=== PATIENT | male | born 1960 | race Caucasian/White ===

== ENCOUNTER → 2023-02-07 15:15 | Outpatient (CLI) | payer SELFPAY ==
[2023-02-07 17:12] LABS: Hematocrit 45.4 % (41-53); Hemoglobin 15.7 g/dL (13.5-17.5); Mean Corpuscular HGB Conc 34.5 % (30-36); Mean Corpuscular Hemoglobin 31.3 PG (26-34); Mean Corpuscular Volume 90.9 fL (80-100); Platelet Count 286 X10^3/uL (150-400); Red Cell Distribution Width 13.1 % (11.6-14.8); White Blood Cell Count 9.6 X10^3/uL (4.5-11.0)
[2023-02-07 17:43] LABS: Alanine Aminotransferase 35 IU/L (<50); Albumin 4.8 g/dL (3.5-5.0); Albumin Globulin Ratio 1.4 (1.0-2.8); Alkaline Phosphatase 62 U/L (38-126); Aspartate Aminotransferase 29 IU/L (17-59); BUN Creatinine Ratio 17.9 (6-22); Bilirubin Total 0.6 mg/dL (0.2-1.3); Blood Urea Nitrogen 12 mg/dL (9-20); Calcium 9.7 mg/dL (8.4-10.2); Carbon Dioxide 32 mmol/L (22-32); Chloride 102 mmol/L (98-107); Cholesterol 280 mg/dL (140-199); Estimated Glomerular Filt Rate > 60 mL/min (>60); Globulin 3.4 g/dL (1.7-4.1); Glucose 128 mg/dL (80-110); HDL Cholesterol 35 mg/dL (40-60); HEMOLYSIS < 15 (0-50); Potassium 3.9 mmol/L (3.4-5.1); Sodium 141 mmol/L (137-145); Total Protein 8.2 g/dL (6.3-8.2)
[2023-02-07 18:01] LABS: Creatinine Urine Random 39.2 mg/dL
[2023-02-07 18:06] LABS: Triglycerides 880 mg/dL (35-150)
[2023-02-07 18:13] LABS: TSH w/ Reflex to FT4 2.38 uIU/mL (0.47-4.68)
[2023-02-07 18:19] LABS: Microalbumi Creatinin Ratio Ur 846.9 ug/mg CR (<30); Microalbumin Urine Random 33.2 mg/dL (0-1.6)
[2023-02-09 09:05] LABS: Labcorp Hemoglobin (Hb) A1c 8.2 % (4.8-5.6)
== END ==
PROVIDERS: PCP Registered Nurse Diabetes Educator; Referring Provider Registered Nurse Diabetes Educator; Visit Provider Registered Nurse Diabetes Educator
DX: E11.9 Type 2 diabetes mellitus without complications (principal); I10 Essential (primary) hypertension; E78.5 Hyperlipidemia, unspecified
CPT/HCPCS: 36415; 80053; 80061; 82043; 82570; 83036; 84443; 85027

== ENCOUNTER → 2023-12-21 11:00 | Outpatient (CLI) | payer MEDICARE, SELFPAY ==
[2023-12-21 11:40] LABS: Add Manual Diff / Slide Review NO; Basophils Absolute Auto 100 /uL (0-100); Basophils Percent Auto 0.7 % (0-2); Eosinophils Absolute Auto 100 /uL (0-450); Eosinophils Percent Auto 0.8 % (2-4); Hematocrit 42.1 % (41-53); Hemoglobin 14.5 g/dL (13.5-17.5); Lymphocytes Absolute Auto 3000 /uL (1100-4500); Lymphocytes Percent Auto 33.2 % (25-40); Mean Corpuscular HGB Conc 34.4 % (30-36); Mean Corpuscular Hemoglobin 31.5 PG (26-34); Mean Corpuscular Volume 91.6 fL (80-100); Monocytes Absolute Auto 700 /uL (0-900); Monocytes Percent Auto 7.2 % (3-14); Neutrophils Absolute Auto 5200 /uL (1500-7000); Neutrophils Percent Auto 58.1 % (50-75); Platelet Count 231 X10^3/uL (150-400); Red Cell Distribution Width 12.6 % (11.6-14.8)
[2023-12-21 11:50] LABS: Alanine Aminotransferase 30 IU/L (<50); Albumin 4.4 g/dL (3.5-5.0); Albumin Globulin Ratio 1.4 (1.0-2.8); Alkaline Phosphatase 61 U/L (38-126); Aspartate Aminotransferase 27 IU/L (17-59); BUN Creatinine Ratio 23.4 (6-22); Bilirubin Total 0.7 mg/dL (0.2-1.3); Blood Urea Nitrogen 15 mg/dL (9-20); Calcium 9.6 mg/dL (8.4-10.2); Carbon Dioxide 29 mmol/L (22-32); Chloride 102 mmol/L (98-107); Cholesterol 167 mg/dL (140-199); Estimated Glomerular Filt Rate > 60 mL/min (>60); Globulin 3.1 g/dL (1.7-4.1); Glucose 300 mg/dL (80-110); HDL Cholesterol 43 mg/dL (40-60); HEMOLYSIS < 15 (0-50); Potassium 4.6 mmol/L (3.4-5.1); Sodium 138 mmol/L (137-145); Total Protein 7.5 g/dL (6.3-8.2); Triglycerides 439 mg/dL (35-150)
[2023-12-21 11:57] LABS: Hemoglobin A1C% w Est Avg Glu 10.6 % (4.0-6.0)
[2023-12-21 12:02] LABS: Creatinine Urine Random 133.1 mg/dL
[2023-12-21 12:09] LABS: Microalbumi Creatinin Ratio Ur 54.8 ug/mg CR (<30); Microalbumin Urine Random 7.3 mg/dL (0-1.6)
[2023-12-21 12:20] LABS: TSH w/ Reflex to FT4 0.97 uIU/mL (0.47-4.68)
== END ==
PROVIDERS: PCP Registered Nurse Diabetes Educator; Referring Provider Nurse Practitioner Family; Visit Provider Nurse Practitioner Family
DX: I10 Essential (primary) hypertension (principal); E11.9 Type 2 diabetes mellitus without complications
CPT/HCPCS: 36415; 80053; 80061; 82043; 82570; 83036; 84443; 85025

== ENCOUNTER → 2024-01-09 09:56 | Outpatient (CLI) | payer MEDICARE, SELFPAY ==
--- NOTE | 2024-01-10 13:37 | DIAB.MNT ---
Initial Diabetes Medical Nutrition Therapy Assessment Name: Ugo Blanco Date: 01/09/24 Time: 1030a-12p Dx: Type II Diabetes Brian presents for initial Dm visit. Denies previous DM ed. PMH of DM for 15+ years per report. FH of DM with mother and sister. Has had to ration meds in the past. Due to this he is only taking half of the Metformin dose. Denies issues with getting DM meds as of recent, but he is fearful of running out. Taking Farxiga and glipizide as rx'd. Not taking all rx'd meds, and needing a list of bp meds. H/o very high BP. Use to use Trulicity before moving here from [place], but decided to d/c this after the move. Lives on a sail[place]. Son, DIL, and grandchildren live here. still lives in [place]. Reports pain with walking, which resolves after rest. Has some risk factors for PAD, ie hyperglycemia and h/o tobacco use x 40 years. No longer using tobacco since stroke 3 years ago. Cares for his feet daily. Does not go barefoot. Since he lives on a boat, he finds it challenging to home cook meals. Has a burner, but limited capability to wash dishes. Most meals are microwaved. Often high Na meals, which likely impact his BP. Diet Recall: 530-6a: 2c coffee creamer hazelnut 1p: microwavable breakfast bowl with sausage, egg, potato (900mg Na and 14g CHO) OR Grocery store prepared breakfast burrito with eggs, cheese, onion, and sausage 630-7p: burrito OR grocery store prepared meals, ie 1/2c mac n cheese with protein and half cup corn Sn: nothing or chips or sweetened cereal, ie chocolate rice, frosted flakes, shredded wheat Gini: 1.5L sf peach tea, 2c coffee, no plain water Anthropometrics: Ht: 6' Wt: 201# (12/2023) Physical Activity: walks dog 4-5x per day for 5-10 min. ONce per week walks to grocery store and back, 0.5 mi. Main barrier is leg pain. Self-Monitoring Blood Glucose: None. Has rx but no supplies at home. Has checked in the past. No BP cuff at home. ARY MENSAH called his pharmacy and confirmed that they have BG supplies ordered. Pharmacy will coordinate with pt and PCP office to fill this. Diabetes Medications: 1000mg Metformin BID (taking 1000mg AM only) 10mg Farxiga 2.5mg glipizide ER Pertinent Labs: HgA1c: 8.2% 02/2023 10.6% 12/2023 Past Medical History: (Last Reviewed 06/10/23 @ 10:23 by OVI Alan) Dyslipidemia Essential hypertension (~2009) History of stroke History of TIA (transient ischemic attack) (~2019) Marijuana user Partial blindness (~2019) Type 2 diabetes mellitus without complication (~2000) Nutrition Rx: Carbohydrates: Meal:45g Snack: 15-30g ; Sodium: 2000mg daily Nutrition Diagnosis: - Excessive Na intake r/t premade foods and limited ability to prepare foods aeb pt report and elevated BP - Self monitoring deficit r/t no SMBG supplies aeb pt report of not checking BG - Food and nutrition related knowledge deficit r/t no previous MNT or DM ed aeb pt report Intervention: This participant was very receptive. Provided appropriate educational handouts. Discussed the following topics: Completed intake assessment. Discussed barriers to care. Pathophysiology of T2DM HgA1c, its correlation to blood glucose numbers, and rationale for goal Importance of self-monitoring, how often, and when to check. Plate Method, impact of macronutrients on blood sugar, meal timing, carbohydrate counting, pairing macronutrients and spreading out carbohydrates for better blood glucose management Recommended servings for carbohydrates at meals and snacks Heart health nutrition: Na Medication Review: reviewed rx'd meds, encouraged him to compare this to home regimen Brainstormed appropriate meal plan based on food preferences Role of physical activity Created SMART goals for patient self-care and success. 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
== END ==
LOC: DIET 09:57
PROVIDERS: PCP Registered Nurse Diabetes Educator; Referring Provider Nurse Practitioner Family; Visit Provider Nurse Practitioner Family
DX: E11.9 Type 2 diabetes mellitus without complications (principal); Z79.84 Long term (current) use of oral hypoglycemic drugs; Z71.3 Dietary counseling and surveillance
CPT/HCPCS: 97802

== ENCOUNTER → 2024-01-29 09:38 | Outpatient (CLI) | payer MEDICARE, SELFPAY ==
--- NOTE | 2024-02-08 17:05 | DIAB.MNTFU ---
Follow-up Diabetes Medical Nutrition Therapy Assessment Name: Ugo Blanco Date: 01/29/24 Time: 07-5144a Dx: Type II Diabetes Brian presents for dm follow-up. Reports not picking up SGLT2i or insulin due to cost. Today we called his pharmacy and determined insulin cost is for 75 days, not one month. Seems more manageable for him. Increased glipizide to 5mg. Plans to get BP cuff for home checks at pay day 02/08. Limited veggie intake, but likes quite a few, ie beets, carrots, celery, spinach. Has separate 2 burner that is portable, however worries about hot plate and fire hazard on boat. Cooking mostly with microwave. Lots of processed foods as a result, high Na intake. Anthropometrics: Ht: 6' Wt: 196# at PCP Physical Activity: : walks dog 4-5x per day for 5-10 min. ONce per week walks to grocery store and back, 0.5 mi. Main barrier is leg pain. Self-Monitoring Blood Glucose: Started checking FB-400mg/dl. Diabetes Medications: 1000mg Metformin BID (taking 1000mg AM only) 10mg Farxiga (not taking) 5mg glipizide ER 5u Glargine (not taking) Pertinent Labs: HgA1c: 8.2% 02/2023 10.6% 12/2023 Past Medical History: (Last Reviewed 06/10/23 @ 10:23 by OVI Alan) Dyslipidemia Essential hypertension (~2009) History of stroke History of TIA (transient ischemic attack) (~2019) Marijuana user Partial blindness (~2019) Type 2 diabetes mellitus without complication (~2000) Nutrition Rx: Carbohydrates: Meal:45g Snack: 15-30g ; Sodium: 2000mg daily Nutrition Diagnosis: - Excessive Na intake r/t premade foods and limited ability to prepare foods aeb pt report and elevated BP- in progress - Self monitoring deficit r/t no SMBG supplies aeb pt report of not checking BG- improved - Food and nutrition related knowledge deficit r/t no previous MNT or DM ed aeb pt report- in progress Intervention: This participant was very receptive. Provided appropriate educational handouts. Discussed the following topics: Blood sugar review and trends. Medication management: insulin action, risk/tx lows, cost Heart health nutrition: sodium Meal planning Strategies for increasing veggies Created SMART goals for patient self-care and success. Goals: Add vegetables to dinner- in progress switch to turkey sausage- in progress Check premade meals for nutrition label- met medical supervisor meter and supplies- met Check medications at home compared to list- met Switch to cheerios- met Buy BP cuff- new medical supervisor veggies- new Make your own burrito- new medical supervisor insulin on pay day- new Follow-up: MARCELLE MENSAH follow-up in 3-4 weeks Caroline Jorgensen RDN, MAKENNA Certified Diabetes Care and Refinery Operator [employer] [facility] P: [phone] Thank you for this referral
== END ==
PROVIDERS: PCP Registered Nurse Diabetes Educator; Referring Provider Registered Nurse Diabetes Educator
DX: E11.9 Type 2 diabetes mellitus without complications (principal); Z79.84 Long term (current) use of oral hypoglycemic drugs; T38.3X6A Underdosing of insulin and oral hypoglycemic [antidiabetic] drugs, initial encounter; Z91.120 Patient's intentional underdosing of medication regimen due to financial hardship; Z71.3 Dietary counseling and surveillance
CPT/HCPCS: 97803

== ENCOUNTER → 2024-03-01 09:29 | Outpatient (CLI) | payer MEDICARE, SELFPAY ==
--- NOTE | 2024-03-01 10:00 | DIAB.FU ---
Follow-up Diabetes Education Assessment Name: Ugo Blanco Date: 03/01/24 Time: 97-1028o Dx: Type II Diabetes Brian presents for dm follow-up. BP much improved. Up to 20u of Lantus and BG down from 400-500, around 300-360mg/dl now. Based on wt may need closer to 45u HS for BG to be in range. Poor sleep most nights due to dog waking him to urinate. Reports he could not pick up operator Farxiga due to cost of $200, though states pharmacy at first quoted for $50. Called pharmacy and found out he has a $150 deductible + $47/month cost. This is unaffordable for him per report. Currently only taking half dose Metformin. Was rationing Metformin due to cost and reading on social media that Metformin is bad for you. Plans to increase to rx and titrate insulin until BG in goal. Has Rx for CGM to [facility]. Given insurance, may need to use Dm supply company. Today we downloaded [employer]loom apps and will place starter kit next week or personal CGM if he receives it from pharmacy. Anthropometrics: Ht: 6' Wt: 198# at PCP Physical Activity: : walks dog 4-5x per day or more for 5-10 min. Once per week walks to grocery store and back, 0.5 mi. Main barrier is leg pain. Self-Monitoring Blood Glucose: FBG running in the 300s mg/dl. Diabetes Medications: 1000mg Metformin BID (taking 1000mg AM only) 10mg Farxiga (not taking due to cost) 5mg glipizide ER 20u Glargine Pertinent Labs: HgA1c: 8.2% 02/2023 10.6% 12/2023 Past Medical History: (Last Reviewed 06/10/23 @ 10:23 by OVI Alan) Dyslipidemia Essential hypertension (~2009) History of stroke History of TIA (transient ischemic attack) (~2019) Marijuana user Partial blindness (~2019) Type 2 diabetes mellitus without complication (~2000) Intervention: This participant was very receptive. Provided appropriate educational handouts. Discussed the following topics: Blood sugar review and trends. Medication management: insulin titration schedule and Metformin safety and recs Troubleshooting Farxiga cost with him and pharmacy Downloaded CGM apps for next visit Low s/s and tx Symptoms of lows with in range numbers after hyperglycemia hx Created SMART goals for patient self-care and success. Goals: Buy BP cuff- met supervisor patching veggies- not discussed Make your own burrito- not discussed supervisor patching insulin on pay day- met Increase Metformin to rx- new Titrate insulin q other day as discussed- new supervisor patching glucose tabs- new Follow-up: MARCELLE MENSAH follow-up in 1 week Caroline Jorgensen RDN, MAKENNA Certified Diabetes Care and Diesel Powerplant Supervisor P: [phone] Thank you for this referral
== END ==
PROVIDERS: PCP Registered Nurse Diabetes Educator; Referring Provider Registered Nurse Diabetes Educator
DX: E11.9 Type 2 diabetes mellitus without complications (principal); Z79.4 Long term (current) use of insulin; Z71.3 Dietary counseling and surveillance; Z79.84 Long term (current) use of oral hypoglycemic drugs
CPT/HCPCS: G0108

== ENCOUNTER → 2024-03-08 09:51 | Outpatient (CLI) | payer MEDICARE, SELFPAY ==
--- NOTE | 2024-03-21 11:39 | DIAB.FU ---
Follow-up Diabetes Education Assessment Name: Ugo Blanco Date: 03/08/24 Time: [id number] Dx: Type II Diabetes Brian presents for Dm visit. Reports apprehension today about CGM trial. Would certainly benefit given we are adjusting insulin, he historically has had hyperglycemia, though may be at risk for lows with titration of insulin. Plans to titrate up to 30u of glargine since he continues to have BG in the 290-400mg/dl range. Has questions about taking Metformin with insulin at the same time before bed. Self-Monitoring Blood Glucose: Checking FBG and though they are improving they are still quite elevated with recent readings 318, 343, 290, 329, 354, 300 mg/dl. Less readings in the 400 range this week. Also had his first reading under 300mg/dl. Diabetes Medications: 1000mg Metformin BID (taking 1000mg AM only) 10mg Farxiga (not taking due to cost) 5mg glipizide ER 20u Glargine Pertinent Labs: HgA1c: 8.2% 02/2023 10.6% 12/2023 Past Medical History: (Last Reviewed 06/10/23 @ 10:23 by OVI Alan) Dyslipidemia Essential hypertension (~2009) History of stroke History of TIA (transient ischemic attack) (~2019) Marijuana user Partial blindness (~2019) Type 2 diabetes mellitus without complication (~2000) Intervention: This participant was very receptive. Provided appropriate educational handouts. Discussed the following topics: Recent blood sugar results and trends Medication management: insulin titration, taking metformin with insulin safety Reviewed CGM use and equipment Discussed when to check blood sugars using finger stick Reviewed high and low blood sugar signs/symptoms and treatment options Provided education for self-administration of CGM placement Educated patient on alarm settings Discussed when to replace equipment and disposal Created SMART goals for patient self-care and success. 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 Encouraged Ugo to call after 10 day trial of CGM. Caroline Jorgensen, MARCELLE, MAKENNA Certified Diabetes Care and Bed Laster P: [phone] Thank you for this referral
== END ==
LOC: DIET 09:52
PROVIDERS: PCP Nurse Practitioner Family; Referring Provider Nurse Practitioner Family
DX: E11.9 Type 2 diabetes mellitus without complications (principal); I10 Essential (primary) hypertension; Z71.3 Dietary counseling and surveillance
CPT/HCPCS: G0108

== ENCOUNTER → 2024-04-10 10:35 | Outpatient (CLI) | payer MEDICARE, SELFPAY ==
--- NOTE | 2024-04-10 10:59 | DIAB.MNTFU ---
Follow-up Diabetes Medical Nutrition Therapy Assessment Name: Ugo Blanco Date: 04/10/24 Time: 11aa Dx: Type II Diabetes Brian presents for Dm follow-up. Tried CGM sample, but the sensor seemed to be faulty. Up to 70u HS insulin, which is on the high side. May actually benefit from meal time insulin, however some concerns from this RD on how realistic consistent meal time insulin injections would be for him. Now taking Metformin as rx'd. Plans to see PCP today. Most meals are pre packaged from grocery store. Limited ability to cook in boat kitchen. Does not eat salads due to GI upset/diarrhea, which is especially an issue on the boat (does not use his boat restroom). Choosing brown rice. Avoiding potatoes and corn. Drinking sugar beverages due to misunderstanding about sugar substitutes. Anthropometrics: Ht: 6' Wt: 196# at PCP Physical Activity: : walks dog 4-5x per day for 5-10 min. ONce per week walks to grocery store and back, 0.5 mi. Main barrier is leg pain. Self-Monitoring Blood Glucose: CGM sensor malfunctioned. Did get some data indicating elevations in the 200-300 after some meals. Continues to check FBG. Some in goal, but others still quite elevated. Will place another sample and ask for food journal. Previous readings in March indicate a few numbers 120-150mg/dl. Unclear why the variation. Date Pre Post Pre Post Pre Post HS 04/04 121 04/05 326 04/06 200 04/07 175 7/ 200 7/2 252 73 175 Diabetes Medications: 1000mg Metformin BID 5mg glipizide ER 70u Glargine Pertinent Labs: HgA1c: 8.2% 02/2023 10.6% 12/2023 Past Medical History: (Last Reviewed 06/10/23 @ 10:23 by OVI Alan) Dyslipidemia Essential hypertension (~2009) History of stroke History of TIA (transient ischemic attack) (~2019) Marijuana user Partial blindness (~2019) Type 2 diabetes mellitus without complication (~2000) Nutrition Rx: Carbohydrates: Meal:45g Snack: 15-30g ; Sodium: 2000mg daily Nutrition Diagnosis: Predicted excessive CHO intake r/t nutrition knowledge deficit aeb reported soda intake and processed foods Intervention: This participant was very receptive. Provided appropriate educational handouts. Discussed the following topics: Blood sugar review and trends. Impact of food intake on results. Impact of macronutrients on blood sugar Impact of sugar beverages vs SF options CGM review and guided self placement Medication management Created SMART goals for patient self-care and success. Goals: Trial CGM- in progress Take Metformin BID - met Avoid sugar beverages- new Buy low CHO tortillas- new Keep food journal- new Retry CGM x 10 days - new Follow-up: MARCELLE MENSAH follow-up in 2-3 weeks Caroline Jorgensen RDN, MAKENNA Certified Diabetes Care and Client Experience Consultant P: [phone] Thank you for this referral
== END ==
PROVIDERS: PCP Nurse Practitioner Family; Referring Provider Nurse Practitioner Family
DX: E11.9 Type 2 diabetes mellitus without complications (principal); Z79.84 Long term (current) use of oral hypoglycemic drugs; Z79.4 Long term (current) use of insulin; Z71.3 Dietary counseling and surveillance
CPT/HCPCS: 97803

== ENCOUNTER → 2024-04-10 13:11 | Outpatient (CLI) | payer MEDICARE, SELFPAY ==
[2024-04-10 14:29] LABS: Cholesterol 176 mg/dL (140-199); HDL Cholesterol 39 mg/dL (40-60); LDL Cholesterol Calculated 73 mg/dL (<100); Triglycerides 320 mg/dL (35-150)
[2024-04-10 15:55] LABS: Hemoglobin A1C% w Est Avg Glu 10.3 % (4.0-6.0)
== END ==
PROVIDERS: PCP Nurse Practitioner Family; Referring Provider Nurse Practitioner Family; Visit Provider Nurse Practitioner Family
DX: E11.9 Type 2 diabetes mellitus without complications (principal); E78.5 Hyperlipidemia, unspecified
CPT/HCPCS: 36415; 80061; 83036

== ENCOUNTER → 2024-04-26 08:37 | Outpatient (CLI) | payer MEDICARE, SELFPAY ==
--- NOTE | 2024-05-01 15:55 | DIAB.MNTFU ---
Follow-up Diabetes Medical Nutrition Therapy Assessment Name: Ugo Blanco Date: 04/26/24 Time: 2297-1517 Dx: Type II Diabetes Brian presents for Dm follow-up. Tried CGM sample, didn't love it but was fine with wearing it. Feels it did not impact any lifestyle changes for him. Continues on 70u HS insulin, which is on the high side. May actually benefit from meal time insulin, however some concerns from this RD on how realistic consistent meal time insulin injections would be for him. Most meals are pre packaged from grocery store. Limited ability to cook in boat kitchen. Does not eat salads due to GI upset/diarrhea, which is especially an issue on the boat (does not use his boat restroom). States he is open to changing his diet but does not know how. Has been logging his food along with CGM use. Was able to review food and impact on BG. Also reported he was running out of amlodipine at the time of this visit. Anthropometrics: Ht: 6' Wt: 196# Physical Activity: : walks dog 4-5x per day for 5-10 min. ONce per week walks to grocery store and back, 0.5 mi. Main barrier is leg pain. Self-Monitoring Blood Glucose: Wore Dexcom sample. Time in range below goal of 70%. Blood sugars tend to increase over the duration of the day with highest being after dinner. FBG continue to improve, though somtimes quite high, which per CGM may be continued hyperglycemia from night before. Unable to download reports from CGM due to pt weariness about connecting, but was able to review his CGM nereida for data. TIR: 40% >250mg/dl 35% 181-250mg/dl 25% 70-180mg/dl 0% 70mg/dl avmg/dl GMI 8.9% Date Pre Post Pre Post Pre Post HS 04/14 110 7/8 135 7/9 205 7/10 183 7/11 172 7/12 140 7/13 151 Diabetes Medications: 1000mg Metformin BID 5mg glipizide ER 70u Glargine Pertinent Labs: HgA1c: 8.2% 02/2023 10.6% 12/2023 10.3% 04/2024 Past Medical History: (Last Updated 05/01/24 @ 09:06 by Genie Ly [facility]) Cigarette smoker Quit 2019 after stroke Dyslipidemia Essential hypertension (~2009) History of stroke History of TIA (transient ischemic attack) (~2019) Intermittent claudication Marijuana use, episodic Marijuana user Partial blindness (~2019) Type 2 diabetes mellitus without complication (~2000) Nutrition Rx: Carbohydrates: Meal:45g Snack: 15-30g ; Sodium: 2000mg daily Nutrition Diagnosis: Predicted excessive CHO intake r/t nutrition knowledge deficit aeb reported soda intake and processed foods Intervention: This participant was very receptive. Provided appropriate educational handouts. Discussed the following topics: Blood sugar review and trends. Impact of food intake on results. Potential for meal time insulin Created grocery list of lower carb foods he enjoys Brainstormed a meal plan based on food preferences with rec'd portions Impact of macronutrients on blood sugar Brief discussion of risk of complications Created SMART goals for patient self-care and success. Goals: Avoid sugar beverages- met Buy low CHO tortillas- in progress Keep food journal- met Retry CGM x 10 days - met Choose lower carb options discussed- new Follow-up: MARCELLE MENSAH follow-up in 2-[address] provide ADS form for CGM rx and messaged PCP about amlodipine rx concern. Caroline Jorgensen RDN, MAKENNA Certified Diabetes Care and Bulk Materials Handling Plant Operator P: [phone] Thank you for this referral
== END ==
PROVIDERS: PCP Nurse Practitioner Family; Referring Provider Nurse Practitioner Family
DX: E11.9 Type 2 diabetes mellitus without complications (principal); Z79.84 Long term (current) use of oral hypoglycemic drugs; Z71.3 Dietary counseling and surveillance; Z79.4 Long term (current) use of insulin
CPT/HCPCS: G0270

== ENCOUNTER → 2024-05-21 09:26 | Outpatient (CLI) | payer MEDICARE, SELFPAY ==
--- NOTE | 2024-07-10 10:40 | DIAB.MNTFU ---
Follow-up Diabetes Medical Nutrition Therapy Assessment Name: Ugo Blanco Date: 05/21/24 Time: 10-11a Dx: Type II Diabetes Brian presents for Dm follow-up. Reports efforts to reduce CHO intake, choosing sf options in beverages. Continues to have low veggie intake and some meals mostly CHO. Diet recall: skips breakfast lunch: fruit and 10-15 crackers dinner: premade dinners, ie lasagna, lobster mac n cheese Potential for meal time insulin given limited nature of diet changes with living situation. States his stove is in a place where he cannot safely cook on the [place]. Does not want to eat RTE salads due to GI upset/urgency. Limited refrigerator space as well. Anthropometrics: Ht: 6' Wt: 196# Physical Activity: : walks dog 4-5x per day for 5-10 min. ONce per week walks to grocery store and back, 0.5 mi. Main barrier is leg/foot pain. Self-Monitoring Blood Glucose: Checking FBG, recent readings: 180, 191, 203, 185, 193, 199, 207 mg/dl. Still elevated. RD contacted ADS. In process for CGM. Last Visit TIR: 40% >250mg/dl 35% 181-250mg/dl 25% 70-180mg/dl 0% 70mg/dl avmg/dl GMI 8.9% Diabetes Medications: 1000mg Metformin BID 5mg glipizide ER 35u Glargine BID Pertinent Labs: HgA1c: 8.2% 02/2023 10.6% 12/2023 10.3% 04/2024 Past Medical History: (Last Updated 05/01/24 @ 09:06 by Genie Ly [facility]) Cigarette smoker Quit 2019 after stroke Dyslipidemia Essential hypertension (~2009) History of stroke History of TIA (transient ischemic attack) (~2019) Intermittent claudication Marijuana use, episodic Marijuana user Partial blindness (~2019) Type 2 diabetes mellitus without complication (~2000) Nutrition Rx: Carbohydrates: Meal:45g Snack: 15-30g ; Sodium: 2000mg daily Nutrition Diagnosis: Predicted excessive CHO intake r/t nutrition knowledge deficit aeb reported soda intake and processed foods Intervention: This participant was very receptive. Provided appropriate educational handouts. Discussed the following topics: Blood sugar review and trends. Impact of food intake on results. Potential for meal time insulin Pairing for CHO and protein Types of insulin and action sugar free options Created SMART goals for patient self-care and success. Goals: Choose lower carb options discussed- improved Add cheese to crackers- new Follow-up: MARCELLE MENSAH follow-up in 2-3 weeks Caroline Jorgensen RDN, MAKENNA Certified Diabetes Care and College Physics Instructor P: [phone] Thank you for this referral
== END ==
PROVIDERS: PCP Nurse Practitioner Family; Referring Provider Nurse Practitioner Family
DX: E11.9 Type 2 diabetes mellitus without complications (principal); Z71.3 Dietary counseling and surveillance; Z79.4 Long term (current) use of insulin; Z79.84 Long term (current) use of oral hypoglycemic drugs
CPT/HCPCS: G0270

== ENCOUNTER → 2024-06-19 09:30 | Outpatient (CLI) | payer MEDICARE, SELFPAY ==
--- NOTE | 2024-07-10 10:47 | DIAB.MNTFU ---
Follow-up Diabetes Medical Nutrition Therapy Assessment Name: Ugo Blanco Date: 06/19/24 Time: 950-11a Dx: Type II Diabetes Brian presents for Dm follow-up. States he has tried to access Jardiance, but cost is a barrier. Endorses poor sleep recently, dog keeping him up. Received Dexcom G7 sensors. Needed refresher on placement and setup. Has questions about low BG treatment. Continues with low veggie intake and high processed foods and CHO intake. States his main barriers in veggie intake are limited veg he likes and limited space for storage. Anthropometrics: Ht: 6' Wt: 196# Physical Activity: : walks dog 4-5x per day for 5-10 min. ONce per week walks to grocery store and back, 0.5 mi. Main barrier is leg/foot pain. Self-Monitoring Blood Glucose: Checking FBG, recent readings continue to be elevated >130mg/dl. Diabetes Medications: 1000mg Metformin BID 5mg glipizide ER 35u Glargine BID Pertinent Labs: HgA1c: 8.2% 02/2023 10.6% 12/2023 10.3% 04/2024 Past Medical History: (Last Updated 05/01/24 @ 09:06 by Genie Ly [facility]) Cigarette smoker Quit 2019 after stroke Dyslipidemia Essential hypertension (~2009) History of stroke History of TIA (transient ischemic attack) (~2019) Intermittent claudication Marijuana use, episodic Marijuana user Partial blindness (~2019) Type 2 diabetes mellitus without complication (~2000) Nutrition Rx: Carbohydrates: Meal:45g Snack: 15-30g ; Sodium: 2000mg daily Nutrition Diagnosis: Predicted excessive CHO intake r/t nutrition knowledge deficit aeb reported soda intake and processed foods Nutrition and food related knowledge deficit r/t needing review of rule of 15 aeb pt report Intervention: This participant was very receptive. Provided appropriate educational handouts. Discussed the following topics: RUle of 15 and s/s for lows Medication options and barriers Vegetables he likes and strategies for storage Canned vs frozen vs refrigerated options for veggies Created SMART goals for patient self-care and success. Goals: Add cheese to crackers- not met Check out glucose tabs for lows prn- new Add celery to meals- new Follow-up: RDN [facility] follow-up in 2-3 weeks Caroline Jorgensen RDN, [facility] Certified Diabetes Care and Clinical Abstractor P: [phone] Thank you for this referral
== END ==
PROVIDERS: PCP Nurse Practitioner Family; Referring Provider Nurse Practitioner Family
DX: E11.9 Type 2 diabetes mellitus without complications (principal); Z79.84 Long term (current) use of oral hypoglycemic drugs; Z79.4 Long term (current) use of insulin; Z71.3 Dietary counseling and surveillance; I10 Essential (primary) hypertension
CPT/HCPCS: G0270

== ENCOUNTER → 2024-07-10 08:15 | Outpatient (CLI) | payer MEDICARE, SELFPAY ==
--- NOTE | 2024-08-01 10:54 | DIAB.MNTFU ---
Follow-up Diabetes Medical Nutrition Therapy Assessment Name: Ugo Blanco Date: 07/10/24 Time: [id number] Dx: Type II Diabetes Brian presents for Dm follow-up. Plans to complete labs this month. Considering changing his boat so the stove is more available for cooking. Anticipate that this would improve his ability to make some nutrition changes. Continues to eat mostly ready to eat options from grocery store. High BG symptoms: fatigue, sleepy, sore per report Has sugar on boat to treat lows prn. Interested in pump therapy but hesitant due to experience with daughter in law poor experience with occlusion resulting in DKA. May benefit from pump therapy due to ability of pump to increase/decrease insulin to correct BG and his history of memory deficits. States he often orders a pizza and eats this over a few days, slices pizza in 6. 2 slices results in excessive CHO intake. No veggie intake. Diet recall; coffee and sf creamer lunch: steak and gravy with potatoes OR lasagna OR 2 slices of XL pizza dinner: same as lunch 1/2 gallon water crystal light or sf tea Anthropometrics: Ht: 6' Wt: 196# Physical Activity: : walks dog 4-5x per day for 5-10 min. ONce per week walks to grocery store and back, 0.5 mi. Main barrier is leg/foot pain. Self-Monitoring Blood Glucose: Checking FBG, recent readings continue to be elevated >130mg/dl. Diabetes Medications: 1000mg Metformin BID 5mg glipizide ER 35u Glargine BID Pertinent Labs: HgA1c: 8.2% 02/2023 10.6% 12/2023 10.3% 04/2024 Past Medical History: (Last Updated 05/01/24 @ 09:06 by Genie Ly [facility]) Cigarette smoker Quit 2019 after stroke Dyslipidemia Essential hypertension (~2009) History of stroke History of TIA (transient ischemic attack) (~2019) Intermittent claudication Marijuana use, episodic Marijuana user Partial blindness (~2019) Type 2 diabetes mellitus without complication (~2000) Nutrition Rx: Carbohydrates: Meal:45g Snack: 15-30g ; Sodium: 2000mg daily Nutrition Diagnosis: Predicted excessive CHO intake r/t nutrition knowledge deficit aeb reported takeout intake and processed foods Nutrition and food related knowledge deficit r/t needing review of rule of 15 aeb pt report - improved Intervention: This participant was very receptive. Provided appropriate educational handouts. Discussed the following topics: Strategies to reduce CHO intake Potential for cooking at home Insulin pump pros/cons and process Plate Method and veggie intake Symptoms of hyperglycemia v hypoglycemia Created SMART goals for patient self-care and success. Goals: Check out glucose tabs for lows prn- continue Add celery to meals- not met Ask for pizza to be sliced in 8 slices- new Buy some carrots and celery- new Consider options to allow cooking at home- new Consider insulin pen for meals v pump- new Follow-up: MARCELLE MENSAH follow-up in 3-4 weeks Caroline Jorgensen RDN, MAKENNA Certified Diabetes Care and Blueprint Reproducer P: [phone] Thank you for this referral
== END ==
PROVIDERS: PCP Nurse Practitioner Family; Referring Provider Nurse Practitioner Family
DX: E11.9 Type 2 diabetes mellitus without complications (principal); I10 Essential (primary) hypertension; Z71.3 Dietary counseling and surveillance; Z79.84 Long term (current) use of oral hypoglycemic drugs; Z79.4 Long term (current) use of insulin
CPT/HCPCS: G0270

== ENCOUNTER → 2024-07-10 10:18 | Outpatient (CLI) | payer MEDICARE, SELFPAY ==
[2024-07-10 12:21] LABS: Add Manual Diff / Slide Review NO; Basophils Absolute Auto 100 /uL (0-100); Basophils Percent Auto 0.8 % (0-2); Eosinophils Absolute Auto 100 /uL (0-450); Eosinophils Percent Auto 0.8 % (2-4); Hematocrit 39.8 % (41-53); Hemoglobin 13.7 g/dL (13.5-17.5); Lymphocytes Absolute Auto 3500 /uL (1100-4500); Lymphocytes Percent Auto 39.6 % (25-40); Mean Corpuscular HGB Conc 34.4 % (30-36); Mean Corpuscular Hemoglobin 31.6 PG (26-34); Mean Corpuscular Volume 91.9 fL (80-100); Monocytes Absolute Auto 700 /uL (0-900); Monocytes Percent Auto 8.1 % (3-14); Neutrophils Absolute Auto 4500 /uL (1500-7000); Neutrophils Percent Auto 50.7 % (50-75); Platelet Count 271 X10^3/uL (150-400); Red Blood Cell Count 4.34 X10^6/uL (4.5-5.9); Red Cell Distribution Width 12.3 % (11.6-14.8); White Blood Cell Count 8.9 X10^3/uL (4.5-11.0)
[2024-07-10 12:36] LABS: Hemoglobin A1C% w Est Avg Glu 9.9 % (4.0-6.0)
[2024-07-10 12:50] LABS: Blood Urea Nitrogen 16 mg/dL (9-20); Calcium 9.6 mg/dL (8.4-10.2); Carbon Dioxide 28 mmol/L (22-32); Chloride 98 mmol/L (98-107); Cholesterol 215 mg/dL (140-199); Estimated Glomerular Filt Rate > 60 mL/min (>60); Glucose 152 mg/dL (80-110); HDL Cholesterol 37 mg/dL (40-60); HEMOLYSIS 15 (0-50); Potassium 3.9 mmol/L (3.4-5.1); Sodium 133 mmol/L (137-145); Triglycerides 430 mg/dL (35-150)
== END ==
PROVIDERS: PCP Nurse Practitioner Family; Referring Provider Nurse Practitioner Family; Visit Provider Nurse Practitioner Family
DX: E78.5 Hyperlipidemia, unspecified (principal); E11.9 Type 2 diabetes mellitus without complications; I10 Essential (primary) hypertension; Z86.73 Personal history of transient ischemic attack (TIA), and cerebral infarction without residual deficits
CPT/HCPCS: 36415; 80048; 80061; 83036; 85025; G0270

== ENCOUNTER → 2024-07-19 09:19 | Outpatient (CLI) | payer MEDICARE, SELFPAY ==
[2024-07-22 14:09] LABS: Fecal Immunochemical Test Negative (Negative)
== END ==
PROVIDERS: PCP Nurse Practitioner Family; Referring Provider Nurse Practitioner Family; Visit Provider Nurse Practitioner Family
DX: Z12.11 Encounter for screening for malignant neoplasm of colon (principal)
CPT/HCPCS: 82274

== ENCOUNTER → 2024-08-08 09:35 | Outpatient (CLI) | payer MEDICARE, SELFPAY ==
--- NOTE | 2024-08-21 15:29 | DIAB.MNTFU ---
Follow-up Diabetes Medical Nutrition Therapy Assessment Name: Ugo Blanco Date: 08/08/24 Time: -8787h Dx: Type II Diabetes Brian presents for Dm follow-up. Not checking BG lately. Not wearing CGM, due to $45 bill from [employer]. Potential for [employer] financial assistance. he has questions about affordability of pump and CGM. Favoring [employer], but would have to complete FBG and Cpeptide lab draw. Continues to have difficulty with diet changes Difficulty with living on boat, limited ability to cook or store food. Son is amenable to him making renovations to boat to help make cooking easier, however consideration for costs here as well. Tried to get pizza place to cut pizza into smaller pizza, but this was unsuccessful per report. has mealtime insulin rx, but worried about cost Recent HgA1c above 9% but still moving in the right direction. Diet recall; coffee and sf creamer lunch: steak and gravy with potatoes OR lasagna OR 2 slices of XL pizza dinner: same as lunch 1/2 gallon water crystal light or sf tea Anthropometrics: Ht: 6' Wt: 196# Physical Activity: : walks dog 4-5x per day for 5-10 min. ONce per week walks to grocery store and back, 0.5 mi. Main barrier is leg/foot pain. Self-Monitoring Blood Glucose: None lately Diabetes Medications: 1000mg Metformin BID 5mg glipizide ER 35u Glargine BID Pertinent Labs: HgA1c: 8.2% 02/2023 10.6% 12/2023 10.3% 04/2024 9.9% 07/2024 Past Medical History: (Last Updated 05/01/24 @ 09:06 by Genie Ly [facility]) Cigarette smoker Quit 2019 after stroke Dyslipidemia Essential hypertension (~2009) History of stroke History of TIA (transient ischemic attack) (~2019) Intermittent claudication Marijuana use, episodic Marijuana user Partial blindness (~2019) Type 2 diabetes mellitus without complication (~2000) Nutrition Rx: Carbohydrates: Meal:45g Snack: 15-30g ; Sodium: 2000mg daily Nutrition Diagnosis: Predicted excessive CHO intake r/t nutrition knowledge deficit aeb reported takeout intake and processed foods Nutrition and food related knowledge deficit r/t needing review of rule of 15 aeb pt report - improved Intervention: This participant was very receptive. Provided appropriate educational handouts. Discussed the following topics: Strategies to reduce CHO intake Rule of 15 review Options: pumps/MDI with CGM Potential for financial assistance with DM tech importance of BG checks if no CGM wear Created SMART goals for patient self-care and success. Goals: Ask for pizza to be sliced in 8 slices- met Buy some carrots and celery- met Consider options to allow cooking at home- met Consider insulin pen for meals v pump- met Start FBG checks- new Follow-up: MARCELLE MENSAH follow-up in 2-[address] to message DM tech resources to determine assistance programs Caroline Jorgensen RDN, MAKENNA Certified Diabetes Care and Inside Wirer P: [phone] Thank you for this referral
== END ==
PROVIDERS: PCP Nurse Practitioner Family; Referring Provider Nurse Practitioner Family
DX: E11.9 Type 2 diabetes mellitus without complications (principal); I10 Essential (primary) hypertension; Z79.4 Long term (current) use of insulin; E78.5 Hyperlipidemia, unspecified; Z71.3 Dietary counseling and surveillance
CPT/HCPCS: G0270

== ENCOUNTER → 2024-08-22 09:53 | Outpatient (CLI) | payer MEDICARE, SELFPAY ==
--- NOTE | 2024-08-22 10:09 | DIAB.MNTFU ---
Follow-up Diabetes Medical Nutrition Therapy Assessment Name: Ugo Blanco Date: 08/22/24 Time: a Dx: Type II Diabetes Brian presents for Dm follow-up. Not checking BG lately. Not wearing CGM, due to $45 bill from [employer]. We called [employer] today to discuss financial assistance for CGM. Eating more veggies: celery, wick peppers most days Diet Recall: coffee and sf creamer lunch: chicken wings with bbq sauce dinner: pre made meal with veggies water crystal light or sf tea Today we called [employer] and his pharmacy to determine costs and strategies for reducing costs. Was not picking up mealtime insulin due to $105 for one pen but pharmacy reports this is for a box, which would likely last 4-6 months. Anthropometrics: Ht: 6' Wt: 207# 08/2024 Physical Activity: : walks dog 4-5x per day for 5-10 min. ONce per week walks to grocery store and back, 0.5 mi. Main barrier is leg/foot pain. Self-Monitoring Blood Glucose: None lately Diabetes Medications: 1000mg Metformin BID 5mg glipizide ER 35u Glargine BID Pertinent Labs: HgA1c: 8.2% 02/2023 10.6% 12/2023 10.3% 04/2024 9.9% 07/2024 Past Medical History: (Last Updated 05/01/24 @ 09:06 by Genie Ly [facility]) Cigarette smoker Quit 2019 after stroke Dyslipidemia Essential hypertension (~2009) History of stroke History of TIA (transient ischemic attack) (~2019) Intermittent claudication Marijuana use, episodic Marijuana user Partial blindness (~2019) Type 2 diabetes mellitus without complication (~2000) Nutrition Rx: Carbohydrates: Meal:45g Snack: 15-30g ; Sodium: 2000mg daily Nutrition Diagnosis: Predicted excessive CHO intake r/t nutrition knowledge deficit aeb reported takeout intake and processed foods- continued Nutrition and food related knowledge deficit r/t needing review of rule of 15 aeb pt report - improved/in progress Intervention: This participant was very receptive. Provided appropriate educational handouts. Discussed the following topics: Added veggies to diet benefits Troubleshooting for financial assistance for CGM Troubleshooting for mealtime insulin affordability Review of protein foods and reduced impact on BG Created SMART goals for patient self-care and success. 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 At that time we will place his CGM, check in about [employer] CGM affordability, and discuss Rule of 15 review and mealtime insulin start. Caroline Jorgensen RDN, MAKENNA Certified Diabetes Care and Painter Drum P: [phone] Thank you for this referral
== END ==
PROVIDERS: PCP Nurse Practitioner Family; Referring Provider Nurse Practitioner Family
DX: E11.9 Type 2 diabetes mellitus without complications (principal); Z71.3 Dietary counseling and surveillance; Z79.84 Long term (current) use of oral hypoglycemic drugs; Z79.4 Long term (current) use of insulin; I10 Essential (primary) hypertension
CPT/HCPCS: G0270

== ENCOUNTER → 2024-09-19 09:44 | Outpatient (CLI) | payer MEDICARE, SELFPAY ==
--- NOTE | 2024-10-10 15:50 | DIAB.FU ---
Follow-up Diabetes Education Assessment: Personal CGM Placement Name: Ugo Blanco Date: 09/19/24 Time: 10 Dx: Type II Diabetes Brian presents for Dm follow-up. Brought his last CGM for placement. States he had stopped wearing them due to cost, but in the process of figuring this out. In the meantime, needs help/refresher on how to place CGM. Plans to call [employer] to pay balance to restart CGM use. Still would benefit from financial assistance for CGMs. RD contacted [employer] directly regarding this. Plans to start mealtime insulin. has not yet. Anthropometrics: Ht: 6' Wt: 207# 08/2024 Physical Activity: : walks dog 4-5x per day for 5-10 min. Barrier includes dog sometimes pulls him and he worries about balance and falling. Self-Monitoring Blood Glucose: None lately Diabetes Medications: 1000mg Metformin BID 5mg glipizide ER 35u Glargine BID 4u Novolog TID-- not started Pertinent Labs: HgA1c: 8.2% 02/2023 10.6% 12/2023 10.3% 04/2024 9.9% 07/2024 Past Medical History: (Last Updated 05/01/24 @ 09:06 by Genie Ly [facility]) Cigarette smoker Quit 2019 after stroke Dyslipidemia Essential hypertension (~2009) History of stroke History of TIA (transient ischemic attack) (~2019) Intermittent claudication Marijuana use, episodic Marijuana user Partial blindness (~2019) Type 2 diabetes mellitus without complication (~2000) Intervention: This participant was very receptive. Provided appropriate educational handouts. Discussed the following topics: Review of benefits of CGM especially with mealtime insulin CGM placement: directed pt on how to place and when to check BG with meter, alerts, and goals Reviewed his financial constraints with him and what is possible regarding DM tech Rule of 15 reviewed Created SMART goals for patient self-care and success. 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
== END ==
PROVIDERS: PCP Nurse Practitioner Family; Referring Provider Nurse Practitioner Family
DX: E11.9 Type 2 diabetes mellitus without complications (principal); I10 Essential (primary) hypertension; Z79.84 Long term (current) use of oral hypoglycemic drugs; Z79.4 Long term (current) use of insulin; Z71.3 Dietary counseling and surveillance
CPT/HCPCS: 95249

== ENCOUNTER → 2024-10-10 09:44 | Outpatient (CLI) | payer MEDICARE, SELFPAY ==
--- NOTE | 2024-11-12 09:11 | DIAB.FU ---
Follow-up Diabetes Education Assessment Name: Ugo Blanco Date: 10/10/24 Time: Dx: Type II Diabetes Brian presents for Dm follow-up. Still trying to figure out finances with diabetes tech, CGM and potentially pump. States he does want to restart CGm, and considering insulin pump still. we have discussed this in depth. Encouraged him to make the decision that works best for him and his finances and health. MDI may be the financially sound way right now. Called [employer] again today. Moved his order from monthly to q three months per pt request. Asked them to send him financial reporting specialist paperwork as he requested. Encouraged him to bring to our next visit for help prn. Taking 10u meal time insulin 2x per day due to eating BID. Encouraged him to inform PCP of the higher meal time dose he is taking. Does seem appropriate given his h/o elevations and ratio of fast acting to long acting insulin would actually allow for 12u TID. Bought glucose tabs for hypo tx. Anthropometrics: Ht: 6' Wt: 207# 08/2024 Physical Activity: : walks dog 4-5x per day for 5-10 min. Barrier includes dog sometimes pulls him and he worries about balance and falling. Self-Monitoring Blood Glucose: Most of BG results in >250mg/dl range. TIR: 58% very high 41% high 1% in range 0% low or very low avmg/dl Diabetes Medications: 1000mg Metformin BID 5mg glipizide ER 35u Glargine BID 10u Novolog BID Pertinent Labs: HgA1c: 8.2% 02/2023 10.6% 12/2023 10.3% 04/2024 9.9% 07/2024 Past Medical History: Cigarette smoker Quit 2019 after stroke Dyslipidemia Essential hypertension (~2009) History of stroke History of TIA (transient ischemic attack) (~2019) Intermittent claudication Marijuana use, episodic Marijuana user Partial blindness (~2019) Type 2 diabetes mellitus without complication (~2000) Intervention: This participant was very receptive. Provided appropriate educational handouts. Discussed the following topics: DM tech: affordability, pro/cons, action Hypoglycemia tx and s/s review Insulin dosing BG review and trends CGM access troubleshooting Created SMART goals for patient self-care and success. Goals: Call [employer] about balance when able- met Start mealtime insulin as rx'd- met Keep sugar tabs or syrup around for lows- met Bring [employer] paperwork prn- new Tell PCP about changes you made to mealtime insulin- new Follow-up: MARCELLE MENSAH follow-up in 3-4 weeks Caroline Jorgensen RDN, MAKENNA Certified Diabetes Care and Hot Pipe Gauger P: [phone] Thank you for this referral
== END ==
PROVIDERS: PCP Nurse Practitioner Family; Referring Provider Nurse Practitioner Family
DX: E11.649 Type 2 diabetes mellitus with hypoglycemia without coma (principal); Z71.3 Dietary counseling and surveillance; Z79.84 Long term (current) use of oral hypoglycemic drugs; Z79.4 Long term (current) use of insulin
CPT/HCPCS: G0108

== ENCOUNTER → 2024-10-10 11:29 | Outpatient (CLI) | payer MEDICARE, SELFPAY ==
[2024-10-10 12:45] LABS: BUN Creatinine Ratio 21.8 (6-22); Blood Urea Nitrogen 19 mg/dL (9-20); Calcium 10.2 mg/dL (8.4-10.2); Carbon Dioxide 29 mmol/L (22-32); Chloride 99 mmol/L (98-107); Estimated Glomerular Filt Rate > 60 mL/min (>60); Glucose 137 mg/dL (80-110); HEMOLYSIS < 15 (0-50); Potassium 5.2 mmol/L (3.4-5.1); Sodium 138 mmol/L (137-145)
[2024-10-10 12:48] LABS: Hemoglobin A1C% w Est Avg Glu 10.5 % (4.0-6.0)
== END ==
PROVIDERS: PCP Nurse Practitioner Family; Referring Provider Nurse Practitioner Family; Visit Provider Nurse Practitioner Family
DX: E11.9 Type 2 diabetes mellitus without complications (principal); I10 Essential (primary) hypertension
CPT/HCPCS: 36415; 80048; 83036

== ENCOUNTER → 2024-11-01 08:35 | Outpatient (CLI) | payer MEDICARE, SELFPAY ==
--- NOTE | 2024-11-12 09:26 | DIAB.FU ---
Follow-up Diabetes Education Assessment Name: Ugo Blanco Date: 11/01/24 Time: 910-10a Dx: Type II Diabetes Brian presents for Dm follow-up. Now getting CGM without copay or filling out aid paperwork. He is very happy about this. Needing guidance on setting up G7 nereida again, accidentally deleted per report. Questions regarding SF beverages and impact on BG Keeping glucose tabs with him. States he thinks he may need more than 10u meal time insulin. Has questions regarding when to take mealtime insulin and why. Anthropometrics: Ht: 6' Wt: 209# 10/2024 207# 08/2024 Physical Activity: : walks dog 4-5x per day for 5-10 min. Barrier includes dog sometimes pulls him and he worries about balance and falling. Self-Monitoring Blood Glucose: Checking FBg at home, 130-160mg/dl. No CGM at this time. TIR from last visit below. Last TIR: 58% very high 41% high 1% in range 0% low or very low avmg/dl Diabetes Medications: 1000mg Metformin BID 5mg glipizide ER 35u Glargine BID 10u Novolog BID Pertinent Labs: HgA1c: 8.2% 02/2023 10.6% 12/2023 10.3% 04/2024 9.9% 07/2024 10.5% 10/2024 Past Medical History: Cigarette smoker Quit 2019 after stroke Dyslipidemia Essential hypertension (~2009) History of stroke History of TIA (transient ischemic attack) (~2019) Intermittent claudication Marijuana use, episodic Marijuana user Partial blindness (~2019) Type 2 diabetes mellitus without complication (~2000) Intervention: This participant was very receptive. Provided appropriate educational handouts. Discussed the following topics: SF beverages and impact on BG Review of CGM placement, nereida, and overall use Medication management: may need additional meal time insulin, however difficulty to titrate insulin given he is not currently wearing CGM When to take meal time insulin and action of insulins Risks for lows Created SMART goals for patient self-care and success. Goals: Bring [employer] paperwork prn- d/c Tell PCP about changes you made to mealtime insulin- not discussed Replace CGm sensor- new Check mailbox for new sensors- new Follow-up: MARCELLE MENSAH follow-up in 3-4 weeks Caroline Jorgensen RDN, [facility] Certified Diabetes Care and Navigation Teacher P: [phone] Thank you for this referral
== END ==
PROVIDERS: PCP Nurse Practitioner Family; Referring Provider Nurse Practitioner Family
DX: E11.9 Type 2 diabetes mellitus without complications (principal); I10 Essential (primary) hypertension; Z71.3 Dietary counseling and surveillance; Z79.84 Long term (current) use of oral hypoglycemic drugs; Z79.4 Long term (current) use of insulin
CPT/HCPCS: G0108

== ENCOUNTER → 2024-12-06 08:33 | Outpatient (CLI) | payer MEDICARE, SELFPAY ==
--- NOTE | 2024-12-06 08:58 | DIAB.MNTFU ---
Follow-up Diabetes Medical Nutrition Therapy Assessment Name: Ugo Blanco Date: 12/06/24 Time: 9-930a Dx: Type II Diabetes Brian presents for Dm follow-up. Reports forgetting meal time insulin frequently. Also dosing 10-15u at meals when he does remember. no evidence of lows. Diet recall indicates low fiber, low veggie intake. C/o pain with LE with walking that subsides with rest. Likely r/t peripheral vascular disease. Diet recall: 11a-1p: pasta and meatballs with cheese OR 2-2.5c mac n cheese with baked beans and burger meat 7p: same as earlier meal 8p: pear Limited on veggie intake r/t ability to store and prepare on boat. Also, limited in preference for canned veggies. Anthropometrics: Ht: 6' Wt: 209# 10/2024 207# 08/2024 Physical Activity: : walks dog 4-5x per day for 10 min. Self-Monitoring Blood Glucose: Big improvement in time in range since last visit. Still below goal. TIR: 34% very high 39% high 27% in range 0% low or very low av mg/dl GMI:8.7% Std dev:63 Variance:28 Last TIR: 58% very high 41% high 1% in range 0% low or very low avmg/dl Diabetes Medications: 1000mg Metformin BID 5mg glipizide ER 35u Glargine BID 10-15u Novolog BID Pertinent Labs: HgA1c: 8.2% 02/2023 10.6% 12/2023 10.3% 04/2024 9.9% 07/2024 10.5% 10/2024 Past Medical History: Cigarette smoker Quit 2019 after stroke Dyslipidemia Essential hypertension (~2009) History of stroke History of TIA (transient ischemic attack) (~2019) Intermittent claudication Marijuana use, episodic Marijuana user Partial blindness (~2019) Type 2 diabetes mellitus without complication (~2000) Nutrition Rx: Carbohydrates: Meal:45g Snack: 15-30g ; Sodium: 2000mg daily Nutrition Diagnosis: Predicted excessive CHO intake r/t nutrition knowledge deficit aeb reported takeout intake and processed foods- continued Predicted inadequate fiber intake r/t limited preference and ability to prepare veggies aeb pt report - new Intervention: This participant was very receptive. Provided appropriate educational handouts. Discussed the following topics: Veggies he likes and can prepare/store BG trends and goals Strategies for remembering meal time insulin PAD and impact on walking, ways to manage PAD (walking, BG management and lipid management) Created SMART goals for patient self-care and success. Goals: Replace CGm sensor- new Check mailbox for new sensors- new Move meal time insulin pen next to drink as a reminder- new Try to eat beets 1x per week - new Follow-up: MARCELLE MENSAH follow-up in 3-4 weeks Caroline Jorgensen RDN, MAKENNA Certified Diabetes Care and Pipe Buffer P: [phone] Thank you for this referral
== END ==
PROVIDERS: PCP Nurse Practitioner Family; Referring Provider Nurse Practitioner Family
DX: E11.9 Type 2 diabetes mellitus without complications (principal); I10 Essential (primary) hypertension; Z79.4 Long term (current) use of insulin; Z71.3 Dietary counseling and surveillance; Z79.84 Long term (current) use of oral hypoglycemic drugs
CPT/HCPCS: 97803

== ENCOUNTER → 2025-01-03 08:32 | Outpatient (CLI) | payer MEDICARE, SELFPAY ==
--- NOTE | 2025-01-03 09:52 | DIAB.MNTFU ---
Addendum entered by Caroline Jorgensen 01/03/25 09:57: Edit time: Original Note: Follow-up Diabetes Medical Nutrition Therapy Assessment Name: Ugo Blanco Date: 01/03/25 Time: Dx: Type II Diabetes Brian presents for Dm follow-up. States he continues to forget meal time insulin. RD wondering if he may benefit from 70/30 insulin BID. Reports he has reconsidered insulin pump therapy but is worried about lows. Feels his meal time insulin doesn't do anything Has not increased veggie intake with beets. Eating more peas lately. Continued c/o pain with LE with walking that subsides with rest. Likely r/t intermittent claudication as listed in his medical records. Eats BID, skips breakfast and does not want to add anything. Asks why his BG increases in the morning without eating, likely r/t gluconeogensis or some kind of hormonal response creating sugar. Limited on veggie intake r/t ability to store and prepare on boat. Also, limited in preference for canned veggies. Reports wt of 178# two years ago when moving here. Thinks the wt gain is from reduced activity since moving. Last Diet recall: 11a-1p: pasta and meatballs with cheese OR 2-2.5c mac n cheese with baked beans and burger meat 7p: same as earlier meal 8p: pear Has eye appt scheduled found a dentist, not scheduled yet-- wants to have dentures fitting better Anthropometrics: Ht: 6' Wt: 209# 10/2024 207# 08/2024 Physical Activity: : walks dog 4-5x per day for 10 min. Self-Monitoring Blood Glucose: Reduced 14 day time in range, though this week BG have improved from the consistent elevations last week. TIR: 48% very high 34% high 18% in range 0% low or very low av mg/dl GMI:9.3% Std dev:70 Variance:28.1 Last TIR: 34% very high 39% high 27% in range 0% low or very low av mg/dl GMI:8.7% Std dev:63 Variance:28 Diabetes Medications: 1000mg Metformin BID 5mg glipizide ER 35u Glargine BID 10-15u Novolog BID Pertinent Labs: HgA1c: 8.2% 02/2023 10.6% 12/2023 10.3% 04/2024 9.9% 07/2024 10.5% 10/2024 Past Medical History: Cigarette smoker Quit 2019 after stroke Dyslipidemia Essential hypertension (~2009) History of stroke History of TIA (transient ischemic attack) (~2019) Intermittent claudication Marijuana use, episodic Marijuana user Partial blindness (~2019) Type 2 diabetes mellitus without complication (~2000) Nutrition Rx: Carbohydrates: Meal:45g Snack: 15-30g ; Sodium: 2000mg daily Nutrition Diagnosis: Predicted excessive CHO intake r/t stage of change and limitations on boat for cooking aeb reported takeout intake and processed foods- continued Predicted inadequate fiber intake r/t limited preference and ability to prepare veggies aeb pt report - continued Intervention: This participant was very receptive. Provided appropriate educational handouts. Discussed the following topics: Veggies he likes and can prepare/store BG trends and goals Potential for 70/30 insulin and risks for lows vs insulin pump therapy Action of insulin and dosing Eating frequency and adding earlier meal/snack for reduced glucose production at waking hour DM complication risk reduction PAD and impact on walking, ways to manage PAD (walking, BG management and lipid management) Created SMART goals for patient self-care and success. Goals: Move meal time insulin pen next to drink as a reminder- met Try to eat beets 1x per week - in progress Schedule dental visit- new Follow-up: MARCELLE MENSAH follow-up in 4 weeks Caroline Jorgensen RDN, MAKENNA Certified Diabetes Care and Sanitation Manager P: [phone] Thank you for this referral
== END ==
LOC: DIET 08:32
PROVIDERS: PCP Nurse Practitioner Family; Referring Provider Nurse Practitioner Family
DX: E11.9 Type 2 diabetes mellitus without complications (principal); Z71.3 Dietary counseling and surveillance; Z79.4 Long term (current) use of insulin; Z79.84 Long term (current) use of oral hypoglycemic drugs
CPT/HCPCS: 97803

== ENCOUNTER → 2025-01-22 09:01 | Outpatient (CLI) | payer MEDICARE, SELFPAY ==
[2025-01-22 10:14] LABS: Alanine Aminotransferase 27 IU/L (<50); Albumin 4.3 g/dL (3.5-5.0); Albumin Globulin Ratio 1.8 (1.0-2.8); Alkaline Phosphatase 70 U/L (38-126); Aspartate Aminotransferase 26 IU/L (17-59); BUN Creatinine Ratio 18.1 (6-22); Bilirubin Total 0.5 mg/dL (0.2-1.3); Blood Urea Nitrogen 15 mg/dL (9-20); Calcium 9.6 mg/dL (8.4-10.2); Carbon Dioxide 26 mmol/L (22-32); Chloride 100 mmol/L (98-107); Cholesterol 164 mg/dL (140-199); Estimated Glomerular Filt Rate > 60 mL/min (>60); Globulin 2.4 g/dL (1.7-4.1); Glucose 216 mg/dL (80-110); HDL Cholesterol 34 mg/dL (40-60); HEMOLYSIS < 15 (0-50); LDL Cholesterol Calculated 65 mg/dL (<100); Potassium 4.8 mmol/L (3.4-5.1); Sodium 137 mmol/L (137-145); Total Protein 6.7 g/dL (6.3-8.2); Triglycerides 326 mg/dL (35-150)
[2025-01-22 12:19] LABS: Hemoglobin A1C% w Est Avg Glu 8.8 % (4.0-6.0)
== END ==
PROVIDERS: PCP Nurse Practitioner Family; Referring Provider Nurse Practitioner Family; Visit Provider Nurse Practitioner Family
DX: E11.9 Type 2 diabetes mellitus without complications (principal); E78.5 Hyperlipidemia, unspecified; Z86.73 Personal history of transient ischemic attack (TIA), and cerebral infarction without residual deficits; I10 Essential (primary) hypertension
CPT/HCPCS: 36415; 80053; 80061; 83036

== ENCOUNTER → 2025-02-05 08:31 | Outpatient (CLI) | payer MEDICARE, SELFPAY ==
--- NOTE | 2025-02-05 16:47 | DIAB.MNTFU ---
Follow-up Diabetes Medical Nutrition Therapy Assessment Name: Ugo Blanco Date: 02/05/25 Time: 90a Dx: Type II Diabetes Brian presents for Dm follow-up. Has switched to 70/30 insulin vs basal/bolus due to forgetting meal time insulin injections. Currently having elevations due to likely needing higher dosing. Reports moderate increase in veggie intake with beets. Reports continued choosing sf beverage options. States he can feel the elevated BG. Endorses eating BID most days, sometimes TID. Still needing to call eye and dental appt. Last Diet recall: 11a-1p: pasta and meatballs with cheese OR 2-2.5c mac n cheese with baked beans and burger meat 7p: same as earlier meal 8p: pear Anthropometrics: Ht: 6' Wt: 207.5# 01/2025 209# 10/2024 207# 08/2024 Physical Activity: : walks dog 4-5x per day for 10 min. Self-Monitoring Blood Glucose: Reduced 14 day time in range and excessive time >250mg/dl r/t needing more insulin coverage. TIR: 73% very high 23% high 4% in range 0% low or very low av mg/dl GMI: 10.2% Std dev: Variance: Last TIR: 48% very high 34% high 18% in range 0% low or very low av mg/dl GMI:9.3% Std dev:70 Variance:28.1 Diabetes Medications: 1000mg Metformin BID 35u Glargine BID -- d/c 10-15u Novolog BID -- d/c 70/30 15u BID-- new Pertinent Labs: HgA1c: 8.2% 02/2023 10.6% 12/2023 10.3% 04/2024 9.9% 07/2024 10.5% 10/2024 8.8% 01/2025 Past Medical History: Cigarette smoker Quit 2019 after stroke Dyslipidemia Essential hypertension (~2009) History of stroke History of TIA (transient ischemic attack) (~2019) Intermittent claudication Marijuana use, episodic Marijuana user Partial blindness (~2019) Type 2 diabetes mellitus without complication (~2000) Nutrition Rx: Carbohydrates: Meal:45g Snack: 15-30g ; Sodium: 2000mg daily Nutrition Diagnosis: Predicted excessive CHO intake r/t stage of change and limitations on boat for cooking aeb reported takeout intake and processed foods- continued Predicted inadequate fiber intake r/t limited preference and ability to prepare veggies aeb pt report - continued Intervention: This participant was very receptive. Provided appropriate educational handouts. Discussed the following topics: Praised him on increased veggie intake Reviewed s/s of hyperglycemia and BG goals Reviewed insulin titration schedule Reviewed CHO portions Discussed DM complication risk reduction Goals: Try to eat beets 1x per week - met Schedule dental visit- in progress Schedule eye appt- new Move to 20u BID and increase by 3u q 3 days if FBG >200mg/dl or stop at 32u-- new Follow-up: MARCELLE MENSAH follow-up in 2-[address] messaged PCP about insulin titration schedule and will call pt with changes prn. Caroline Jorgensen, MARCELLE, [facility] Certified Diabetes Care and Professor Of Industrial Technology P: [phone] Thank you for this referral
== END ==
LOC: DIET 08:31
PROVIDERS: PCP Nurse Practitioner Family; Referring Provider Nurse Practitioner Family
DX: E11.65 Type 2 diabetes mellitus with hyperglycemia (principal); Z71.3 Dietary counseling and surveillance; Z79.84 Long term (current) use of oral hypoglycemic drugs; Z79.4 Long term (current) use of insulin
CPT/HCPCS: 97803

== ENCOUNTER → 2025-02-20 08:49 | Outpatient (CLI) | payer MEDICARE, SELFPAY ==
--- NOTE | 2025-02-20 10:09 | DIAB.MNTFU ---
Follow-up Diabetes Medical Nutrition Therapy Assessment Name: Ugo Blanco Date: 02/20/25 Time: a Dx: Type II Diabetes Brian presents for Dm follow-up. Continues on 70/30 insulin and has been titrating up to 32u BID. Based on wt and 1u/kg, insulin recs would be 94u. BG improved from last visit, however basically back to baseline since pre switching insulin types. Time above 250mg/dl though is improved since switching to 70/30. Likely needs either increased insulin dosing, change in insulin delivery (pump therapy), and/or additional DM medication. Reports continued eating beets for his veggie intake. Some questions regarding starchy vs non starchy veggies. Also reported concerns regarding nutrient density in canned vs fresh or frozen veggies. Most fluids from sf tea at 2L per day. Still needing to call eye and dental appt. Figuring out finances for this per report. Has questions about hypglycemia tx. Has glucose tabs to treat prn. Anthropometrics: Ht: 6' Wt: 207.5# 01/2025 209# 10/2024 207# 08/2024 Physical Activity: : walks dog 4-5x per day for 10 min. Self-Monitoring Blood Glucose: Improved TIR though still having excessive hyperglycemia TIR: 43% very high 41% high 16% in range 0% low or very low av mg/dl GMI: 9.1%% Std dev: 63mg/dl Variance: 26% Last TIR: 73% very high 23% high 4% in range 0% low or very low av mg/dl GMI: 10.2% Std dev: Variance: Pre 70/30 switch TIR: 48% very high 34% high 18% in range 0% low or very low av mg/dl GMI: 9.3% Std dev:70 mg/dl Variance:28.1% Diabetes Medications: 1000mg Metformin BID 70/30 32u BID Pertinent Labs: HgA1c: 8.2% 02/2023 10.6% 12/2023 10.3% 04/2024 9.9% 07/2024 10.5% 10/2024 8.8% 01/2025 Past Medical History: Cigarette smoker Quit 2019 after stroke Dyslipidemia Essential hypertension (~2009) History of stroke History of TIA (transient ischemic attack) (~2019) Intermittent claudication Marijuana use, episodic Marijuana user Partial blindness (~2019) Type 2 diabetes mellitus without complication (~2000) Nutrition Rx: Carbohydrates: Meal:45g Snack: 15-30g ; Sodium: 2000mg daily Nutrition Diagnosis: Predicted excessive CHO intake r/t stage of change and limitations on boat for cooking aeb reported takeout intake and processed foods- continued Predicted inadequate fiber intake r/t limited preference and ability to prepare veggies aeb pt report - continued / improved Nutrition and food related knowledge deficit r/t needing more info on starchy vs non starchy veggies aeb pt report- new Intervention: This participant was very receptive. Provided appropriate educational handouts. Discussed the following topics: Starchy vs non starchy veggies Encouraged affordable veggies in any capacity, though should rinse canned veggies to reduce Na content Rule of 15 to treat lows Insulin titration Goals: Schedule dental visit- in progress Schedule eye appt- in progress Move to 20u BID and increase by 3u q 3 days if FBG >200mg/dl or stop at 32u-- met Focus on frequent veggie intake- new Treat lows with Rule of 15 prn- new Follow-up: MARECLLE MENSAH follow-up in 2-[address] messaged PCP about insulin titration discussion. May want to consider titration up to 45u BID unless other plan for Dm care is determined. RD will update patient after discussion with PCP. Caroline Jorgensen RDN, [facility] Certified Diabetes Care and Lifter/Driver P: [phone] Thank you for this referral
== END ==
PROVIDERS: PCP Nurse Practitioner Family; Referring Provider Nurse Practitioner Family
DX: E11.65 Type 2 diabetes mellitus with hyperglycemia (principal); Z79.4 Long term (current) use of insulin; Z79.84 Long term (current) use of oral hypoglycemic drugs
CPT/HCPCS: 97803

== ENCOUNTER → 2025-03-07 08:38 | Outpatient (CLI) | payer MEDICARE, SELFPAY ==
--- NOTE | 2025-03-13 11:26 | DIAB.MNTFU ---
Follow-up Diabetes Medical Nutrition Therapy Assessment Name: Ugo Blanco Date: 03/07/25 Time: 9-10a Dx: Type II Diabetes Brian presents for Dm follow-up. Continues on 70/30 insulin and up to 35u BID. Based on wt and 1u/kg, insulin recs would be 94u daily or 47u BID. RD spoke with PCP and plan is to first try GLP1. PCP rx'd GLP1 but pt was not able to afford Semaglutide at $465. Today we called his pharmacy. They suggested determining his insurance preferred GLP1 and resubmit rx accordingly. RD updated PCP/workgroup on this. Was out of 70/30 x 1 week recently and did not take insulin. Does have Lantus at home. Endorses one low of 74mg/dl and treated with sugared coffee. Was not symptomatic per report. Reports continued eating beets for his veggie intake. Veggies otherwise are often starchy, including corn and peas. Most fluids from sf tea at 2L per day. Still needing to call eye and dental appt. Figuring out finances for this per report. Provider per last notes recommended insurance counseling given consistent barrier of finances and pt report of not eligible for Medicaid. Has been provided resources, confirmed by pt. Anthropometrics: Ht: 6' Wt: 207.5# 01/2025 209# 10/2024 207# 08/2024 Physical Activity: : Had to recently give his dog back to his son due to issues at the [place] and dogs being banned by residents. States this does allow him to walk more on his own without fear of falling. Self-Monitoring Blood Glucose: Increased hyperglycemia since last visit. TIR: 50% very high 38% high 12% in range 0% low or very low av mg/dl GMI: 9.4%% Std dev: 64mg/dl Variance: 25.4% Last TIR: 43% very high 41% high 16% in range 0% low or very low av mg/dl GMI: 9.1%% Std dev: 63mg/dl Variance: 26% Diabetes Medications: 1000mg Metformin BID 70/30 35u BID Pertinent Labs: HgA1c: 8.2% 02/2023 10.6% 12/2023 10.3% 04/2024 9.9% 07/2024 10.5% 10/2024 8.8% 01/2025 Past Medical History: Cigarette smoker Quit 2019 after strokeDyslipidemia Essential hypertension (~2009) History of stroke History of TIA (transient ischemic attack) (~2019) Intermittent claudication Marijuana use, episodic Marijuana user Partial blindness (~2019) Type 2 diabetes mellitus without complication (~2000) Nutrition Rx: Carbohydrates: Meal:45gSnack: 15-30g ; Sodium: 2000mg daily Nutrition Diagnosis: Predicted excessive CHO intake r/t stage of change and limitations on boat for cooking aeb reported takeout intake and processed foods- continued Nutrition and food related knowledge deficit r/t needing more info on starchy vs non starchy veggies aeb pt report- improved Physical inactivity r/t no longer taking dog on walks aeb pt report - new Intervention: This participant was very receptive. Provided appropriate educational handouts. Discussed the following topics: Diabetes medications Troubleshooting med access and cost Physical activity hypoglycemia treatment and causes Veggie intake and preferences Goals: Focus on frequent veggie intake- continue Treat lows with Rule of 15 prn- continue Take basal insulin if out of 70/30- new Walk daily 30 mins- new Call insurance counseling resources- new Follow-up: MARCELLE MENSAH follow-up in 4 weeks Caorline Jorgensen RDN, MAKENNA Certified Diabetes Care and [employer] Solution Architect P: [phone] Thank you for this referral
== END ==
PROVIDERS: PCP Nurse Practitioner Family; Referring Provider Nurse Practitioner Family
DX: E11.65 Type 2 diabetes mellitus with hyperglycemia (principal); Z71.3 Dietary counseling and surveillance; Z79.4 Long term (current) use of insulin; Z79.84 Long term (current) use of oral hypoglycemic drugs
CPT/HCPCS: G0270

== ENCOUNTER → 2025-04-08 08:39 | Outpatient (CLI) | payer MEDICARE, SELFPAY ==
--- NOTE | 2025-04-09 09:45 | DIAB.MNTFU ---
Follow-up Diabetes Medical Nutrition Therapy Assessment Name: Ugo Blanco Date: 04/08/25 Time: 9-240a Dx: Type II Diabetes Brian presents for Dm follow-up. Continues on 70/30 insulin at 35u BID. Has not attended insurance counseling. States he doesn't understand what this is for and has lost the contact info. Sees PCP 04/09. Mounjaro and Ozempic not affordable. RD wondering if another GLP1 will be better covered, Trulicity? States he had one BG of 90mg/dl fasting and felt aches, headaches and thirst. Continues on usual diet of pre made meals and eating beets as main veggie. Still needing to call eye and dental appt. Figuring out finances for this per report. Anthropometrics: Ht: 6' Wt: 207.5# 01/2025 209# 10/2024 207# 08/2024 Physical Activity: : Had to recently give his dog back to his son due to issues at the [place] and dogs being banned by residents. States this does allow him to walk more on his own without fear of falling, though has not started walking regimen yet. Self-Monitoring Blood Glucose: Improved TIR, though still having excessive hyperglycemia. TIR: 37% very high 41% high 22% in range 0% low or very low av mg/dl GMI: 8.8%% Std dev: 59mg/dl Variance: 25.5% Last TIR: 50% very high 38% high 12% in range 0% low or very low av mg/dl GMI: 9.4%% Std dev: 64mg/dl Variance: 25.4% Diabetes Medications: 1000mg Metformin BID 70/30 35u BID Pertinent Labs: HgA1c: 8.2% 02/2023 10.6% 12/2023 10.3% 04/2024 9.9% 07/2024 10.5% 10/2024 8.8% 01/2025 Past Medical History: Cigarette smoker Quit 2019 after strokeDyslipidemia Essential hypertension (~2009) History of stroke History of TIA (transient ischemic attack) (~2019) Intermittent claudication Marijuana use, episodic Marijuana user Partial blindness (~2019) Type 2 diabetes mellitus without complication (~2000) Nutrition Rx: Carbohydrates: Meal:45gSnack: 15-30g ; Sodium: 2000mg daily Nutrition Diagnosis: Predicted excessive CHO intake r/t stage of change and limitations on boat for cooking aeb reported takeout intake and processed foods- continued Physical inactivity r/t no longer taking dog on walks aeb pt report - in progress Intervention: This participant was very receptive. Provided appropriate educational handouts. Discussed the following topics: Diabetes medications Troubleshooting med access and cost Physical activity Impact of reduced BG on the body and getting more use to lower BG over time Purpose of insurance counseling Veggie intake and preferences Goals: Take basal insulin if out of 70/30- d/c Walk daily 30 mins-in progress Call insurance counseling resources- in progress Chat with PCP about GLP1- new chat with PCP about insurance counseling resource- new Start walks- new Follow-up: RD/MAKENNA follow-up in 3-4 weeks. Caroline Jorgensen RDN, ISELAES Certified Diabetes Care and Gas Station Service Attendant P: [phone] Thank you for this referral
== END ==
LOC: DIET 08:40
PROVIDERS: PCP Nurse Practitioner Family; Referring Provider Nurse Practitioner Family
DX: E11.65 Type 2 diabetes mellitus with hyperglycemia (principal); Z71.3 Dietary counseling and surveillance; Z79.4 Long term (current) use of insulin; Z79.84 Long term (current) use of oral hypoglycemic drugs
CPT/HCPCS: G0270

== ENCOUNTER → 2025-05-06 08:28 | Outpatient (CLI) | payer MEDICARE, SELFPAY ==
--- NOTE | 2025-05-16 17:21 | DIAB.MNTFU ---
Follow-up Diabetes Medical Nutrition Therapy Assessment Name: Ugo Blanco Date: 05/06/25 Time: 9-10a Dx: Type II Diabetes Brian presents for Dm follow-up. Continues on 70/30 insulin at 35u BID. Has not called for insurance counseling. Eating BID. Mostly [employer] pre prepped meals, ie mac n cheese with ribs Eating peas and corn. Sick of beets and limited other veggies that he likes. Raw carrots maybe once per week. Limited by living situation and stage of change for diet modifications. Saw PCP, but states he did not ask about insurance counseling info again. GLP1 unaffordable per report. Options may be to find covered GLP1, titrate up insulin, or revisit pump options. Anthropometrics: Ht: 6' Wt: 202# 04/2025 207.5# 01/2025 209# 10/2024 207# 08/2024 Physical Activity: : Had to recently give his dog back to his son due to issues at the [place] and dogs being banned by residents.Walks less often now. Estimates walking 2-3x per week for 20 mins. Limited by PAD pain per report. Self-Monitoring Blood Glucose: Increased hyperglycemia and low time in goal. TIR: 49% very high 39% high 12% in range 0% low or very low av mg/dl GMI: 9.3%% Std dev: 61mg/dl Variance: 24.4% Last TIR: 37% very high 41% high 22% in range 0% low or very low av mg/dl GMI: 8.8%% Std dev: 59mg/dl Variance: 25.5% Diabetes Medications: 1000mg Metformin BID 70/30 35u BID Pertinent Labs: HgA1c: 8.2% 02/2023 10.6% 12/2023 10.3% 04/2024 9.9% 07/2024 10.5% 10/2024 8.8% 01/2025 Past Medical History: Cigarette smoker Quit 2019 after strokeDyslipidemia Essential hypertension (~2009) History of stroke History of TIA (transient ischemic attack) (~2019) Intermittent claudication Marijuana use, episodic Marijuana user Partial blindness (~2019) Type 2 diabetes mellitus without complication (~2000) Nutrition Rx: Carbohydrates: Meal:45gSnack: 15-30g ; Sodium: 2000mg daily Nutrition Diagnosis: Predicted excessive CHO intake r/t stage of change and limitations on boat for cooking aeb reported takeout intake and processed foods- continued Physical inactivity r/t no longer taking dog on walks aeb pt report - in progress Intervention: This participant was very receptive. Provided appropriate educational handouts. Discussed the following topics: Physical activity Options of diet change, more activity, change in meds for BG management CHO portions at meals Veggie intake and preferences Goals: Walk daily 30 mins- not met Call insurance counseling resources- not met Chat with PCP about GLP1- met chat with PCP about insurance counseling resource- not met Start walks- met Keep CHO to 1c at meals- new Aim for carrots 2x per week - new Follow-up: RD/MAKENNA follow-up in 3-[address] messaged PCP about BG management. Per conversation, this RD will encourage some titration of insulin using wt based recs and encourage pt to call insurance regarding GLP1 coverage. Would also benefit from case management or social work support. Caroline Jorgensen RDN, [facility] Certified Diabetes Care and Digital Hardware Design Engineer P: [phone] Thank you for this referral
== END ==
LOC: DIET 08:29
PROVIDERS: PCP Nurse Practitioner Family; Referring Provider Nurse Practitioner Family
DX: E11.65 Type 2 diabetes mellitus with hyperglycemia (principal); Z71.3 Dietary counseling and surveillance; Z79.84 Long term (current) use of oral hypoglycemic drugs; Z79.4 Long term (current) use of insulin
CPT/HCPCS: G0270

== ENCOUNTER → 2025-06-04 08:31 | Outpatient (CLI) | payer MEDICARE, SELFPAY ==
--- NOTE | 2025-06-25 13:32 | DIAB.MNTFU ---
Follow-up Diabetes Medical Nutrition Therapy Assessment Name: Ugo Blanco Date: 06/04/25 Time: 90a Dx: Type II Diabetes Brian presents for Dm follow-up. Continues on 70/30 insulin at 35u BID. States he has noticed increased feeling of anxiety yesterday, unclear etiology. Endorses Bg >400mg/dl after sweet tea intake. Trying to choose smaller portions. Eating carrots 2x per week as a snack. Considering getting veggie tray. GLP1 has been historically not affordable. Has not contacted insurance to determine if there is a preferred GLP1. Due for labs at the time of this appt. RD has discussed with PCP plan to increase 70/30 and determine GLP1 that is covered. Anthropometrics: Ht: 6' Wt: 205# reported 05/2025 202# 04/2025 207.5# 01/2025 209# 10/2024 207# 08/2024 Physical Activity: : Had to recently give his dog back to his son due to issues at the [place] and dogs being banned by residents.Walks less often now. Estimates walking 2-3x per week for 20 mins. Limited by PAD pain per report. Self-Monitoring Blood Glucose: Continued elevated BG, similar to last visit. TIR: 49% very high 36% high 15% in range 0% low or very low av mg/dl GMI: 9.3%% Std dev: 66 mg/dl Variance: 26.1% Last TIR: 49% very high 39% high 12% in range 0% low or very low av mg/dl GMI: 9.3%% Std dev: 61mg/dl Variance: 24.4% Diabetes Medications: 1000mg Metformin BID 70/30 35u BID Pertinent Labs: HgA1c: 8.2% 02/2023 10.6% 12/2023 10.3% 04/2024 9.9% 07/2024 10.5% 10/2024 8.8% 01/2025 Past Medical History: Cigarette smoker Quit 2019 after strokeDyslipidemia Essential hypertension (~2009) History of stroke History of TIA (transient ischemic attack) (~2019) Intermittent claudication Marijuana use, episodic Marijuana user Partial blindness (~2019) Type 2 diabetes mellitus without complication (~2000) Nutrition Rx: Carbohydrates: Meal:45gSnack: 15-30g ; Sodium: 2000mg daily Nutrition Diagnosis: Predicted excessive CHO intake r/t stage of change and limitations on boat for cooking aeb reported takeout intake and processed foods- continued Physical inactivity r/t no longer taking dog on walks aeb pt report - in progress Intervention: This participant was very receptive. Provided appropriate educational handouts. Discussed the following topics: Physical activity Carb portions Resource to contact Medicare to determine preferred GLP1 Insulin titration 1-2 x per week Veggie intake and preferences SMART goals set Goals: Keep CHO to 1c at meals- in progress Aim for carrots 2x per week - met Call Medicare- new Try 38u BID 70/30- new Complete labs- new Try cut up celery- new Follow-up: RD/MAKENNA follow-up in 3-4 weeks. Caroline Jorgensen RDN, ISELAES Certified Diabetes Care and Entry Level Account Manager P: [phone] Thank you for this referral
== END ==
PROVIDERS: PCP Nurse Practitioner Family; Referring Provider Nurse Practitioner Family
DX: E11.9 Type 2 diabetes mellitus without complications (principal); Z79.4 Long term (current) use of insulin; Z79.84 Long term (current) use of oral hypoglycemic drugs; Z79.85 Long-term (current) use of injectable non-insulin antidiabetic drugs; Z71.3 Dietary counseling and surveillance
CPT/HCPCS: G0270

== ENCOUNTER → 2025-07-02 08:37 | Outpatient (CLI) | payer MEDICARE, SELFPAY ==
--- NOTE | 2025-07-02 09:29 | DIAB.MNTFU ---
Follow-up Diabetes Medical Nutrition Therapy Assessment Name: Ugo Blanco Date: 07/02/25 Time: 9-10a Dx: Type II Diabetes Brian presents for Dm follow-up. Continues on 70/30 insulin at 38u BID. HgA1c slight increase to 9%. PCP placed GLP1 rx for tirzepatide or liraglutide. RD called pharmacy, and tirzepatide is too expensive; however pt can afford the liraglutide. Will pick this up in the next week. Today he is also open to the idea of Omnipod 5. States he has had some very high BG over 400mg/dl recently. Reports eating veggies 2x per week but getting sick of them. Tried the celery, but found this tasteless. Anthropometrics: Ht: 6' Wt: 204.5# 06/2025 205# reported 05/2025 202# 04/2025 207.5# 01/2025 209# 10/2024 207# 08/2024 Physical Activity: : Had to recently give his dog back to his son due to issues at the [place] and dogs being banned by residents.Walks less often now. Estimates walking 2-3x per week for 20 mins. Limited by PAD pain per report. Self-Monitoring Blood Glucose: Continued elevated BG with more hyperglycemia than last visit. TIR: 54% very high 43% high 3% in range 0% low or very low av mg/dl GMI: 9.7%% Std dev: 59 mg/dl Variance: 22% Last TIR: 49% very high 36% high 15% in range 0% low or very low av mg/dl GMI: 9.3%% Std dev: 66 mg/dl Variance: 26.1% Diabetes Medications: 1000mg Metformin BID 70/30 38u BID 0.6mg Liraglutide--- not started yet Pertinent Labs: HgA1c: 8.2% 02/2023 10.6% 12/2023 10.3% 04/2024 9.9% 07/2024 10.5% 10/2024 8.8% 01/2025 9% 06/2025 Past Medical History: Cigarette smoker Quit 2019 after strokeDyslipidemia Essential hypertension (~2009) History of stroke History of TIA (transient ischemic attack) (~2019) Intermittent claudication Marijuana use, episodic Marijuana user Partial blindness (~2019) Type 2 diabetes mellitus without complication (~2000) Nutrition Rx: Carbohydrates: Meal:45gSnack: 15-30g ; Sodium: 2000mg daily Nutrition Diagnosis: Predicted excessive CHO intake r/t stage of change and limitations on boat for cooking aeb reported takeout intake and processed foods- continued Physical inactivity r/t no longer taking dog on walks aeb pt report - in progress Predicted inadequate fiber intake r/t limited veggie acceptance aeb pt report- new Intervention: This participant was very receptive. Provided appropriate educational handouts. Discussed the following topics: Strategies for increasing veggies Strategies for improving veggie flavor Benefits, precautions of GLP1 Weight changes with different Dm meds, ie GLP1 vs insulin Benefits, precautions, and potential access for OP5 system SMART goals set Goals: Call Medicare- met Try 38u BID 70/30- met Complete labs- met Try cut up celery- met pick up and delivery driver Victoza- new Check the sandhu of OP5 with pharmacy- new Veggies 2-3 x per week- new Follow-up: MARCELLE MENSAH follow-up in 2-3 weeks. Plan is for patient to determine cost of OP5. RD messaged PCP about placing rx for this. Pt can try OP5 sample. If he likes it, he will then pay to picker/puller OP5 at pharmacy if affordable. Plans to also start GLP1 prior to next visit. Caroline Jorgensen RDN, [facility] Certified Diabetes Care and Change Management Analyst P: [phone] Thank you for this referral
== END ==
LOC: DIET 08:37
PROVIDERS: PCP Nurse Practitioner Family; Referring Provider Nurse Practitioner Family
DX: E11.65 Type 2 diabetes mellitus with hyperglycemia (principal); Z79.4 Long term (current) use of insulin; Z71.3 Dietary counseling and surveillance; Z79.84 Long term (current) use of oral hypoglycemic drugs
CPT/HCPCS: G0270

== ENCOUNTER → 2025-07-25 08:41 | Outpatient (CLI) | payer MEDICARE, SELFPAY ==
--- NOTE | 2025-09-03 10:15 | DIAB.MNTFU ---
Follow-up Diabetes Medical Nutrition Therapy Assessment Name: Ugo Blanco Date: 07/25/25 Time: [id number] Dx: Type II Diabetes Brian presents for Dm follow-up. no change in diet. 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 Does not eat breakfast, often has snacks mid day. Larger portions for dinner, usually pre prepped meal. Continues on 70/30 insulin at 38u BID. Has not picked up Victoza yet. Wants to try OP5 sample. Aiming for veggies 2-3x per week now. Anthropometrics: Ht: 6' Wt: 204.5# 06/2025 205# reported 05/2025 202# 04/2025 207.5# 01/2025 209# 10/2024 207# 08/2024 Physical Activity: : Had to recently give his dog back to his son due to issues at the [place] and dogs being banned by residents.Walks less often now. Estimates walking 2-3x per week for 20 mins. Limited by PAD pain per report. Self-Monitoring Blood Glucose: Continued elevated BG with slight improvement on in range time. TIR: 48% very high 44% high 8% in range 0% low or very low av mg/dl GMI: 9.3%% Std dev: 53 mg/dl Variance: 21% Last TIR: 54% very high 43% high 3% in range 0% low or very low av mg/dl GMI: 9.7%% Std dev: 59 mg/dl Variance: 22% Diabetes Medications: 1000mg Metformin BID 70/30 38u BID 0.6mg Liraglutide--- not started yet Pertinent Labs: HgA1c: 8.2% 02/2023 10.6% 12/2023 10.3% 04/2024 9.9% 07/2024 10.5% 10/2024 8.8% 01/2025 9% 06/2025 Past Medical History: Cigarette smoker Quit 2019 after strokeDyslipidemia Essential hypertension (~2009) History of stroke History of TIA (transient ischemic attack) (~2019) Intermittent claudication Marijuana use, episodic Marijuana user Partial blindness (~2019) Type 2 diabetes mellitus without complication (~2000) Nutrition Rx: Carbohydrates: Meal:45gSnack: 15-30g ; Sodium: 2000mg daily Nutrition Diagnosis: Predicted excessive CHO intake r/t stage of change and limitations on boat for cooking aeb reported takeout intake and processed foods- continued Physical inactivity r/t no longer taking dog on walks aeb pt report - in progress Predicted inadequate fiber intake r/t limited veggie acceptance aeb pt report- improved Intervention: This participant was very receptive. Provided appropriate educational handouts. 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 coordinate OP5 sample start. Caroline Jorgensen RDN, [facility] Certified Diabetes Care and Pickle Processor P: [phone] Thank you for this referral
== END ==
LOC: DIET 08:41
PROVIDERS: PCP Nurse Practitioner Family; Referring Provider Nurse Practitioner Family
DX: E11.9 Type 2 diabetes mellitus without complications (principal); Z71.3 Dietary counseling and surveillance; Z79.84 Long term (current) use of oral hypoglycemic drugs; Z79.4 Long term (current) use of insulin
CPT/HCPCS: 97803; G0270

== ENCOUNTER → 2025-09-11 09:52 | Outpatient (CLI) | payer MEDICARE, SELFPAY ==
[2025-09-11 11:21] LABS: Hemoglobin A1C% w Est Avg Glu 8.5 % (4.0-6.0)
== END ==
PROVIDERS: PCP Nurse Practitioner Family; Referring Provider Nurse Practitioner Family; Visit Provider Nurse Practitioner Family
DX: E11.9 Type 2 diabetes mellitus without complications (principal); Z79.4 Long term (current) use of insulin
CPT/HCPCS: 36415; 83036

== ENCOUNTER → 2025-09-16 12:43 | Outpatient (CLI) | payer MEDICARE, SELFPAY ==
--- NOTE | 2025-09-16 14:05 | DIAB.MNTFU ---
Follow-up Diabetes Medical Nutrition Therapy Assessment Name: Ugo Blanco Date: 09/16/25 Time: 1-145p Dx: Type II Diabetes Brian presents for Dm follow-up. no change in diet. 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 Does not eat breakfast, often has snacks mid day. Larger portions for dinner, usually pre prepped meal. Continues on 70/30 insulin at 38u BID. Added Victoza at 0.6mg/day. States it is $105 per 2 pens. States he can make this work financially. RD thinks Omnipod 5 start should be on pause given great improvement in BG over the last week. Plans to increase to 1.2mg per day starting this Monday. Overnight, the last two days BG has been 82-150mg/dl. Still having hyperglycemia in the evening after dinner at this time. Denies any SE with current GLP1 dosing. Endorses reduced veggies lately. Anthropometrics: Ht: 6' Wt: 210# 09/2025 204.5# 06/2025 205# reported 05/2025 202# 04/2025 207.5# 01/2025 209# 10/2024 207# 08/2024 Self-Monitoring Blood Glucose: Continued elevated BG with slight improvement on in range time. TIR: 31% very high 50% high 19% in range 0% low or very low av mg/dl GMI: 8.8%% Std dev: 57 mg/dl Variance: 25.1% Last TIR: 48% very high 44% high 8% in range 0% low or very low av mg/dl GMI: 9.3%% Std dev: 53 mg/dl Variance: 21% Diabetes Medications: 1000mg Metformin BID 70/30 38u BID 0.6mg Liraglutide (max 1.8mg) Pertinent Labs: HgA1c: 8.2% 02/2023 10.6% 12/2023 10.3% 04/2024 9.9% 07/2024 10.5% 10/2024 8.8% 01/2025 9% 06/2025 8.5% 09/2025 Past Medical History: Cigarette smoker Quit 2019 after strokeDyslipidemia Essential hypertension (~2009) History of stroke History of TIA (transient ischemic attack) (~2019) Intermittent claudication Marijuana use, episodic Marijuana user Partial blindness (~2019) Type 2 diabetes mellitus without complication (~2000) Nutrition Rx: Carbohydrates: Meal:45gSnack: 15-30g ; Sodium: 2000mg daily Nutrition Diagnosis: Predicted excessive CHO intake r/t stage of change and limitations on boat for cooking aeb reported takeout intake and processed foods- continued Physical inactivity r/t no longer taking dog on walks aeb pt report - in progress Predicted inadequate fiber intake r/t limited veggie acceptance aeb pt report Intervention: This participant was very receptive. Provided appropriate educational handouts. 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 Will work best if we meet in person to review BG and discuss further lifestyle changes. Caroline Jorgensen RDN, [facility] Certified Diabetes Care and Art Supervisor P: [phone] Thank you for this referral
== END ==
LOC: DIET 12:43
PROVIDERS: PCP Nurse Practitioner Family; Referring Provider Nurse Practitioner Family
DX: E11.9 Type 2 diabetes mellitus without complications (principal); Z71.3 Dietary counseling and surveillance; Z79.4 Long term (current) use of insulin; Z79.84 Long term (current) use of oral hypoglycemic drugs; Z79.85 Long-term (current) use of injectable non-insulin antidiabetic drugs
CPT/HCPCS: G0270

== ENCOUNTER → 2025-09-24 08:31 | Outpatient (CLI) | payer MEDICARE, SELFPAY ==
--- NOTE | 2025-09-24 09:49 | DIAB.MNTFU ---
Follow-up Diabetes Medical Nutrition Therapy Assessment Name: Ugo Blanco Date: 09/24/25 Time: 90a Dx: Type II Diabetes Brian presents for Dm follow-up. Was up to 1.2mg Victoza. Had a bg of 74mg/dl in evening with low symptoms, dizzy, lightheaded, and nauseated. Drank a 30g coffee drink and BG recovered. Has glucose tabs. In response to this he reduced back to 0.6mg recently and reduced insulin to 30u BID. Ran out of nuts for snacks. Eating veggies 2-3x per week. Anthropometrics: Ht: 6' Wt: 210# 09/2025 204.5# 06/2025 205# reported 05/2025 202# 04/2025 207.5# 01/2025 209# 10/2024 207# 08/2024 Self-Monitoring Blood Glucose: Improved time in range. Best he has had since starting Dm education. TIR: 13% very high 45% high 42% in range 0% low or very low av mg/dl GMI: 7.9%% Std dev: 50 mg/dl Variance: 25.7% Last TIR: 31% very high 50% high 19% in range 0% low or very low av mg/dl GMI: 8.8%% Std dev: 57 mg/dl Variance: 25.1% Diabetes Medications: 1000mg Metformin BID 70/30 38u BID--- self reduction to 30u BID 0.6-1.2mg Liraglutide (max 1.8mg) Pertinent Labs: HgA1c: 8.2% 02/2023 10.6% 12/2023 10.3% 04/2024 9.9% 07/2024 10.5% 10/2024 8.8% 01/2025 9% 06/2025 8.5% 09/2025 Past Medical History: Cigarette smoker Quit 2019 after strokeDyslipidemia Essential hypertension (~2009) History of stroke History of TIA (transient ischemic attack) (~2019) Intermittent claudication Marijuana use, episodic Marijuana user Partial blindness (~2019) Type 2 diabetes mellitus without complication (~2000) Nutrition Rx: Carbohydrates: Meal:45gSnack: 15-30g ; Sodium: 2000mg daily Nutrition Diagnosis: Predicted excessive CHO intake r/t stage of change and limitations on boat for cooking aeb reported takeout intake and processed foods- continued Physical inactivity r/t no longer taking dog on walks aeb pt report - in progress Predicted inadequate fiber intake r/t limited veggie acceptance and reduced nut intake aeb pt report-- in progress Intervention: This participant was very receptive. Provided appropriate educational handouts. Discussed the following topics: Encouraged veggie intake Low BG treatment and s/s Potential for reducing HS insulin prn with increase in GLP1 (20% reduction would be about 24u) Insulin vs GLP1 Trends in BG Low CHO snacks SMART goals set Goals: Increase Victoza to 1.2mg per day, starting Monday- met If <70mg/dl over night, consider reduction in HS insulin- met Go back to 1.2u per day Victoza- new If lows, reduce insulin (25u BID) not Victoza- new hand picker nuts for snacks- new Follow-up: MARCELLE MENSAH follow-up in 3 weeks or sooner prn. RD messaged PCP regarding plan to increase to 1.8u next visit. Caroline Jorgensen RDN, [facility] Certified Diabetes Care and Blasting Worker P: [phone] Thank you for this referral
== END ==
LOC: DIET 08:32
PROVIDERS: PCP Nurse Practitioner Family; Referring Provider Nurse Practitioner Family
DX: E11.9 Type 2 diabetes mellitus without complications (principal); Z79.85 Long-term (current) use of injectable non-insulin antidiabetic drugs; Z79.84 Long term (current) use of oral hypoglycemic drugs; Z79.4 Long term (current) use of insulin
CPT/HCPCS: G0270